=== PATIENT | female | born 1945 | race Caucasian/White ===

== ENCOUNTER → 2017-07-13 | Day surgery (SDC) | payer OTHER ==
[~2017-07-13] MED LIST: ARAVA10 MG PO; ASPIRIN81 M2 PO; CLOPIDOGREL75 MG PO; FLEXERIL10 MG PO; FOLIC ACID800 MCG PO; HUMIRA40 MG/0.1 SQ; LEXAPRO20 MG PO; LIPITOR40 MG PO; NEURONTIN100 MG PO; NORCO 7.5-3251 EACH PO; PREDNISONE PO; PREMPRO 0.45-11 EACH PO; PROBIOTIC1 EAC5 PO; TOPROL XL50 MG PO; XELJANZ XR11 MG PO; ZESTRIL10 M2 PO
--- NOTE | ~2017-07-13 | OR ---
Unit #: [id number] #: [id number] Patient: ADARSH VARGAS [id number] [address] [place], [place] [address] [id number] MR#: [id number] NAME: ADARSH VARGAS ROOM: Date of Procedure: 07/13/2017 Admission Date: 07/13/2017 Surgeon: Preet Maher M.D. : 1945 Attending Physician: Preet Maher M.D. Primary Care Physician: Derrell Krause OPERATIVE REPORT PREOPERATIVE DIAGNOSES Back pain, radiculopathy, degenerative lumbar disk disease. POSTOPERATIVE DIAGNOSES Back pain, radiculopathy, degenerative lumbar disk disease. PROCEDURE PERFORMED Lumbar epidural steroid injection with intravenous sedation and fluoroscopic guidance for needle localization. INDICATIONS FOR PROCEDURE The patient is a 72-year-old female with return of back pain associated with multilevel multifactorial degenerative disk and spine disease. She is not a good surgical candidate. She has had a previous extensive cervical epidural steroid injection. She treated with medically in the past with epidural steroids, which improved greater than 50% of pain for almost 3 months' time. Single injection was done a year ago. The pain returned and after seeing spine surgeon again as a request for repeat epidural steroid injection which is reasonable. This patient will likely require p.r.n. epidurals on as needed basis in the future. DESCRIPTION OF PROCEDURE The patient was placed in a seated position. Standard monitors were applied. 1 mg of Versed was given for sedation and anxiolysis, which was adequate. Vital signs remained stable. Sterile prep and drape then of the lumbar area was performed. The skin at the L4-L5 level was localized with 1% lidocaine. An 18-gauge Targovaxtead needle was then advanced via loss of resistance technique and fluoroscopic guidance in toward the epidural space. After confirming proper positioning with fluoroscopy and radiographic contrast, 80 mg of Depo-Medrol and 4 mL of 0.125% bupivacaine were deposited. The patient tolerated the procedure otherwise well and was discharged to the recovery room in stable condition. Dictated by... Ada GarciaP/margaret TD: 07/13/2017 17:46 Unit #: [id number] #: [id number] Patient: ADARSH VARGAS JOB #: [id number] CC: [facility] OPERATIVE REPORT Page 1 of 1 X Preet Maher MD X PROCEDURE OPERATIVE NOTE
== END | disposition home or self-care (01) ==
LOC: CCSC 10:34
DX: M51.16 Intervertebral disc disorders with radiculopathy, lumbar region (principal); I10 Essential (primary) hypertension; M06.9 Rheumatoid arthritis, unspecified; Z79.02 Long term (current) use of antithrombotics/antiplatelets; Z79.82 Long term (current) use of aspirin; Z79.899 Other long term (current) drug therapy
CPT/HCPCS: J1040; J2250